=== PATIENT | male | born 1980 ===

== ENCOUNTER 2020-03-24 09:19 | Day surgery (SDC) | payer OTHER ==
[~2020-03-24] VITALS: Ht 205.7 cm; Wt 118.2 kg
[~2020-03-24 09:19] MED LIST: AZIT500 PO; DOXY100 PO; IBUP600 PO
--- NOTE | 2020-03-24 09:47 | NUR ---
ARRIVED INTO [facility] ADMISSION TO UNIT STARTED
--- NOTE | 2020-03-24 13:52 | NUR ---
Discharge instructions reviewed with patient. Patient verbalizes understanding. Copy given to patient to take home. DERMABOND INTACT TO INCISIONS ON ABD. PT TOLERATED CRACKERS, JELLO, WATER WELL. GAVE PAIN PILL PER RX. PT DRESSED. SIG OTHER AT BEDSIDE. Discharged via wheelchair to private car for ride home.
== END 2020-03-24 22:51 | disposition home or self-care (01) ==
LOC: ORSCMMR 09:19 → ORD 10:30 → ORSCMMR 10:30
PROVIDERS: Surgery
PROC: 0YU64JZ Supplement Left Inguinal Region with Synthetic Substitute, Percutaneous Endoscopic Approach (ICD-10-PCS; principal; 2020-03-24 10:30)
PROC: 8E0W4CZ Robotic Assisted Procedure of Trunk Region, Percutaneous Endoscopic Approach (ICD-10-PCS; principal; 2020-03-24 10:30)
DX: K40.91 Unilateral inguinal hernia, without obstruction or gangrene, recurrent (principal); K40.90 Unilateral inguinal hernia, without obstruction or gangrene, not specified as recurrent; E66.01 Morbid (severe) obesity due to excess calories; Z68.38 Body mass index [BMI] 38.0-38.9, adult
CPT/HCPCS: 49651; S2900; A9270-GY; C1781; J0690; J1100; J1885; J2250; J2405; J2704; J2710; J2765; J3010; J7120